=== PATIENT | male | born 1980 | race Two or more races ===

== ENCOUNTER → 2016-06-02 | Outpatient (CLI) | payer OTHER ==
[2016-06-02 14:38] LABS: HEMATOCRIT 40.1 % (37.9-51.0); HEMOGLOBIN 12.7 g/dL (13.5-17.0); MEAN CORPUSCULAR HEMOGLOBIN 23.4 pg (27.0-33.4); MEAN CORPUSCULAR HGB CONC 31.7 g/dL (32.0-36.0); MEAN CORPUSCULAR VOLUME 74 fl (80-97); RED BLOOD COUNT 5.43 10^6/uL (4.35-5.55); RED CELL DISTRIBUTION WIDTH 20.5 % (11.5-14.0); WHITE BLOOD COUNT 6.5 10^3/uL (4.0-10.5)
== END ==
LOC: OD 13:48
PROVIDERS: ATTEND Urology
DX: N40.1 Benign prostatic hyperplasia with lower urinary tract symptoms (principal); E29.1 Testicular hypofunction; N52.8 Other male erectile dysfunction; N52.9 Male erectile dysfunction, unspecified
CPT/HCPCS: 36415; 85027

== ENCOUNTER 2016-11-03 00:31 | Emergency (ER) | payer OTHER ==
[2016-11-03 01:12] VITALS: BP 129/58
[2016-11-03] MEDS ORDERED: BENZONATATE 100 MG CAPSULE PO ONE (01:47)
--- NOTE | 2016-11-03 01:49 | ER Document Report ---
ED Medical Screen (RME) - General Chief Complaint: Cough Stated Complaint: ABDOMINAL PAIN AND COUGH Time Seen by Provider: 11/03/16 01:43 Notes: 36 year old male, chief complaint of 1 week of congested cough, also patient states he has very painful left upper abdomen, unsure if this is from, for something else. Denies nausea or vomiting, denies difficulty eating. He does drink regular alcohol. He denies smoking. He has a history of asthma. Denies fever. TRAVEL OUTSIDE OF THE [place] IN LAST 30 DAYS: No - Related Data Allergies/Adverse Reactions: sertraline HCl [From Zoloft] Allergy (Verified 10/02/12 22:05) Past Medical History - Past Medical History Cardiac Medical History: Reports: Hx Hypercholesterolemia, Hx Hypertension Pulmonary Medical History: Reports: Hx Asthma Renal/ Medical History: Denies: Hx Peritoneal Dialysis Musculoskeltal Medical History: Reports Hx Arthritis Past Surgical History: Reports: Hx Nose Surgery, Hx Orthopedic Surgery - left wrist - Immunizations Hx Diphtheria, Pertussis, Tetanus Vaccination: Yes Physical Exam - Vital signs Vitals: Temp Pulse Resp BP Pulse Ox 98.6 F 88 18 129/58 H 97 11/03/16 01:08 11/03/16 01:08 11/03/16 01:08 11/03/16 01:08 11/03/16 01:08 - Respiratory Respiratory status: No respiratory distress Breath sounds: Nonproductive cough, Other - Scattered coarse breath sounds, no wheezing, rhonchi or other abnormality noted - Abdominal Tenderness: Tender - Tender specifically in mid to left upper abdomen Course - Vital Signs Vital signs: Temp Pulse Resp BP Pulse Ox 98.6 F 88 18 129/58 H 97 11/03/16 01:08 11/03/16 01:08 11/03/16 01:08 11/03/16 01:08 11/03/16 01:08
[2016-11-03 02:08] LABS: ABSOLUTE BASOPHILS # (AUTO) 0.1 10^3/uL (0.0-0.2); ABSOLUTE EOSINOPHILS # (AUTO) 0.6 10^3/uL (0.0-0.6); ABSOLUTE LYMPHOCYTES (AUTO) 2.6 10^3/uL (0.5-4.7); ABSOLUTE MONOCYTES (AUTO) 1.4 10^3/uL (0.1-1.4); ABSOLUTE NEUT (AUTO) 8.8 10^3/uL (1.7-8.2); EOSINOPHILS % (AUTO) 4.2 % (0-6); HEMATOCRIT 40.6 % (37.9-51.0); HEMOGLOBIN 12.5 g/dL (13.5-17.0); HGB HCT DIFFERENCE -3.1; LYMPHOCYTES % (AUTO) 19.5 % (13-45); MEAN CORPUSCULAR HEMOGLOBIN 21.6 pg (27.0-33.4); MEAN CORPUSCULAR HGB CONC 30.8 g/dL (32.0-36.0); MEAN CORPUSCULAR VOLUME 70 fl (80-97); MONOCYTES % (AUTO) 10.1 % (3-13); RED BLOOD COUNT 5.79 10^6/uL (4.35-5.55); RED CELL DISTRIBUTION WIDTH 20.6 % (11.5-14.0); SEGMENTED NEUTROPHILS % (AUTO) 65.2 % (42-78); WHITE BLOOD COUNT 13.5 10^3/uL (4.0-10.5)
[2016-11-03 02:19] LABS: ALANINE AMINOTRANSFERASE 58 U/L (21-72); ALBUMIN 4.1 g/dL (3.5-5.0); ALKALINE PHOSPHATASE 71 U/L (38-126); ANION GAP 9 (5-19); ASPARTATE AMINO TRANSFERASE 45 U/L (17-59); BILIRUBIN,DIRECT 0.4 mg/dL (0.0-0.4); BILIRUBIN,TOTAL 0.4 mg/dL (0.2-1.3); BLOOD UREA NITROGEN 13 mg/dL (7-20); CALCIUM 10.1 mg/dL (8.4-10.2); CARBON DIOXIDE 28 mmol/L (22-30); CHLORIDE 103 mmol/L (98-107); CREATININE RESULT 1.15 mg/dL (0.52-1.25); GLUCOSE 93 mg/dL (75-110); POTASSIUM 5.3 mmol/L (3.6-5.0); SODIUM 140.4 mmol/L (137-145); TOTAL PROTEIN 7.1 g/dL (6.3-8.2)
--- NOTE | 2016-11-03 04:23 | RADIOLOGY REPORT (SQ) ---
EXAM DESCRIPTION: CHEST PA/LAT COMPLETED DATE/TIME: 11/03/2016 3:24 am REASON FOR STUDY: painful cough COMPARISON: None. EXAM PARAMETERS: NUMBER OF VIEWS: two views TECHNIQUE: Digital Frontal and Lateral radiographic views of the chest acquired. RADIATION DOSE: NA LIMITATIONS: none FINDINGS: LUNGS AND PLEURA: No opacities, masses or pneumothorax. No pleural effusion. MEDIASTINUM AND HILAR STRUCTURES: No masses or contour abnormalities. HEART AND VASCULAR STRUCTURES: Heart normal size. No evidence for failure. BONES: No acute findings. HARDWARE: None in the chest. OTHER: No other significant finding. IMPRESSION: NO SIGNIFICANT RADIOGRAPHIC FINDING IN THE CHEST. TECHNICAL DOCUMENTATION: JOB ID: [id number] [employer]- All Rights Reserved
--- NOTE | 2016-11-03 04:48 | ER Document Report ---
ED General - General Chief Complaint: Cough Stated Complaint: ABDOMINAL PAIN AND COUGH Time Seen by Provider: 11/03/16 01:43 Notes: Patient is a 36 year old male, chief complaint of 1 week of congested cough, also patient states he has a painful left upper abdomen, unsure if this is from coughing or from something else. Pain is definitely worse with coughing. Denies nausea or vomiting, denies difficulty eating. Denies black stools. He does drink regular alcohol. He is on omeprazole. He denies smoking. He has a history of asthma. Denies fever. TRAVEL OUTSIDE OF THE [place] IN LAST 30 DAYS: No - Related Data Allergies/Adverse Reactions: sertraline HCl [From Zoloft] Allergy (Verified 10/02/12 22:05) Past Medical History - General Information source: Patient - Social History Smoking Status: Never Smoker Frequency of alcohol use: almost daily Lives with: Alone Family History: Reviewed & Not Pertinent Patient has suicidal ideation: No Patient has homicidal ideation: No - Past Medical History Cardiac Medical History: Reports: Hx Hypercholesterolemia, Hx Hypertension Pulmonary Medical History: Reports: Hx Asthma Renal/ Medical History: Denies: Hx Peritoneal Dialysis Musculoskeltal Medical History: Reports Hx Arthritis Past Surgical History: Reports: Hx Nose Surgery, Hx Orthopedic Surgery - left wrist - Immunizations Hx Diphtheria, Pertussis, Tetanus Vaccination: Yes Review of Systems - Review of Systems Constitutional: No symptoms reported EENT: No symptoms reported Cardiovascular: No symptoms reported Respiratory: See HPI Gastrointestinal: See HPI Genitourinary: No symptoms reported Male Genitourinary: No symptoms reported Musculoskeletal: No symptoms reported Skin: No symptoms reported Hematologic/Lymphatic: No symptoms reported Neurological/Psychological: No symptoms reported Physical Exam - Vital signs Vitals: Temp Pulse Resp BP Pulse Ox 98.6 F 88 18 129/58 H 97 11/03/16 01:08 11/03/16 01:08 11/03/16 01:08 11/03/16 01:08 11/03/16 01:08 Interpretation: Normal - General General appearance: Appears well, Alert, Other - patient has occasional painful coughing fits, but otherwise is well appearing - HEENT Head: Normocephalic, Atraumatic Eyes: Normal Conjunctiva: Normal Extraocular movements intact: Yes Eyelashes: Normal Pupils: PERRL Sinus: Normal Nasal: Normal Mouth/Lips: Normal Mucous membranes: Normal Pharynx: Normal Neck: Normal - Respiratory Respiratory status: No respiratory distress - Scattered coarse breath sounds without rhonchi or wheezing, still has good air movement Chest status: Tender - tender left lower and anterior rib tenderness Breath sounds: Nonproductive cough - Episodes of painful nonproductive cough, Other - a few scattered coarse breath sounds Chest palpation: Normal - Cardiovascular Rhythm: Regular. No: Tachycardia Heart sounds: Normal auscultation, S1 appreciated, S2 appreciated Murmur: No - Abdominal Inspection: Normal Distension: No distension Bowel sounds: Normal Tenderness: Tender - there is some general mild upper abdominal tenderness without guarding. No: Guarding - Back Back: Normal, Nontender. 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 Initially had a virus, has worsening cough, could be bronchitis but does not have wheezing or upper respiratory sounds. Leukocytosis on CBC. Questionable for early developing pneumonia. Patient will be treated with doxycycline. Chemistries unremarkable, lipase is normal. Suspect left upper abdominal tenderness is mainly his rib pain from the cough. No evidence of fracture. No hypoxia, tachypnea, or concerning respiratory symptoms suggesting other emergent abnormality. I discussed with patient. Patient wants an anti- inflammatory for his chest wall, however he has had gastritis and GI bleed in the past. Given moderate dose, giving Pepcid, having him continue his Protonix. Providing with antitussives medications as well. Discussed follow- up and return precautions in detail. Patient states understanding and agreement. - Vital Signs Vital signs: Temp Pulse Resp BP Pulse Ox 98.6 F 88 18 129/58 H 97 11/03/16 01:08 11/03/16 01:08 11/03/16 01:08 11/03/16 01:08 11/03/16 01:08 - Laboratory Result Diagrams: 11/03/16 01:50 11/03/16 01:50 Laboratory results interpreted by me: 11/03/16 11/03/16 01:50 01:50 WBC 13.5 H RBC 5.79 H Hgb 12.5 L MCV 70 L MCH 21.6 L MCHC 30.8 L RDW 20.6 H Absolute Neutrophils 8.8 H Potassium 5.3 H Discharge - Discharge Clinical Impression: Cough, Rib pain on left side, Left upper quadrant pain Condition: Stable Disposition: HOME, SELF-CARE Additional Instructions: You symptoms suggest a developing pneumonia from an original virus. Take doxycycline as directed. Rest. For your ribs take the naproxen and apply heat to the area, but also take pepcid along with it to avoid stomach irritation. Continue omeprazole. Take tessalon for cough during the day if needed, take the syrup at night if needed (sedating). Follow up with primary care. Return to the ED for any concerning or worsening symptoms - difficulty breathing , worsening pain, vomiting, black stools, etc. Prescriptions: Hydrocodone Bit/Homatropine [Hycodan Syrup 5-1.5 mg/5 ml Ud Cup] 5 ml PO Q4HP PRN #120 ml PRN Reason: Benzonatate [Tessalon Perle 100 mg Capsule] 100 mg PO Q8HP PRN #30 cap PRN Reason: Doxycycline Hyclate 100 mg PO BID #14 capsule Famotidine [Pepcid 20 mg Tablet] 20 mg PO BID #20 tablet Naproxen [Naprosyn 375 Mg Tablet] 375 mg PO BID #20 tablet Forms: Return to Work
== END 2016-11-03 04:50 | disposition home or self-care (01) ==
LOC: ER 00:31
DX: R05 Cough (principal); K29.70 Gastritis, unspecified, without bleeding; R10.12 Left upper quadrant pain; R07.81 Pleurodynia; D72.829 Elevated white blood cell count, unspecified; J45.909 Unspecified asthma, uncomplicated; I10 Essential (primary) hypertension; Z79.899 Other long term (current) drug therapy; Z88.8 Allergy status to other drugs, medicaments and biological substances
CPT/HCPCS: 36415; 71020; 80053; 83690; 85025; 99283

== ENCOUNTER → 2016-12-03 | Outpatient (CLI) | payer OTHER, BC ==
[2016-12-03 16:10] LABS: ABSOLUTE LYMPHOCYTES (AUTO) 1.1 10^3/uL (0.5-4.7); ABSOLUTE MONOCYTES (AUTO) 1.3 10^3/uL (0.1-1.4); ABSOLUTE NEUT (AUTO) 14.2 10^3/uL (1.7-8.2); BASOPHILS % (AUTO) 0.2 % (0-2); HEMATOCRIT 38.1 % (37.9-51.0); HEMOGLOBIN 11.7 g/dL (13.5-17.0); LYMPHOCYTES % (AUTO) 6.5 % (13-45); MEAN CORPUSCULAR HEMOGLOBIN 20.9 pg (27.0-33.4); MEAN CORPUSCULAR HGB CONC 30.6 g/dL (32.0-36.0); MEAN CORPUSCULAR VOLUME 68 fl (80-97); RED BLOOD COUNT 5.59 10^6/uL (4.35-5.55); RED CELL DISTRIBUTION WIDTH 21.7 % (11.5-14.0); SEGMENTED NEUTROPHILS % (AUTO) 85.3 % (42-78); WHITE BLOOD COUNT 16.6 10^3/uL (4.0-10.5)
== END ==
LOC: OD 15:36
PROVIDERS: ATTEND Urology
DX: E29.1 Testicular hypofunction (principal); N52.8 Other male erectile dysfunction
CPT/HCPCS: 36415; 84402; 84403; 85025

== ENCOUNTER → 2017-02-13 | Outpatient (CLI) | payer SELFPAY ==
[2017-02-13 13:12] LABS: ABSOLUTE BASOPHILS # (AUTO) 0.1 10^3/uL (0.0-0.2); ABSOLUTE EOSINOPHILS # (AUTO) 0.2 10^3/uL (0.0-0.6); ABSOLUTE LYMPHOCYTES (AUTO) 2.3 10^3/uL (0.5-4.7); ABSOLUTE MONOCYTES (AUTO) 1.2 10^3/uL (0.1-1.4); ABSOLUTE NEUT (AUTO) 5.4 10^3/uL (1.7-8.2); BASOPHILS % (AUTO) 0.9 % (0-2); EOSINOPHILS % (AUTO) 1.8 % (0-6); HEMATOCRIT 42.3 % (37.9-51.0); HEMOGLOBIN 13.2 g/dL (13.5-17.0); HGB HCT DIFFERENCE -2.7; LYMPHOCYTES % (AUTO) 25.2 % (13-45); MEAN CORPUSCULAR HEMOGLOBIN 21.4 pg (27.0-33.4); MEAN CORPUSCULAR HGB CONC 31.3 g/dL (32.0-36.0); MEAN CORPUSCULAR VOLUME 68 fl (80-97); MONOCYTES % (AUTO) 12.6 % (3-13); RED BLOOD COUNT 6.19 10^6/uL (4.35-5.55); RED CELL DISTRIBUTION WIDTH 21.1 % (11.5-14.0); SEGMENTED NEUTROPHILS % (AUTO) 59.5 % (42-78); WHITE BLOOD COUNT 9.2 10^3/uL (4.0-10.5)
== END ==
LOC: OD 12:23
PROVIDERS: ATTEND Urology
DX: E29.1 Testicular hypofunction (principal); N52.8 Other male erectile dysfunction; I10 Essential (primary) hypertension
CPT/HCPCS: 36415; 84403; 85025

== ENCOUNTER → 2017-03-20 | Outpatient (CLI) | payer SELFPAY ==
[2017-03-20 13:14] LABS: HEMATOCRIT 42.6 % (37.9-51.0); HEMOGLOBIN 12.9 g/dL (13.5-17.0); MEAN CORPUSCULAR HEMOGLOBIN 20.5 pg (27.0-33.4); MEAN CORPUSCULAR HGB CONC 30.4 g/dL (32.0-36.0); MEAN CORPUSCULAR VOLUME 67 fl (80-97); PLATELET COUNT 326 10^3/uL (150-450); RED BLOOD COUNT 6.32 10^6/uL (4.35-5.55); RED CELL DISTRIBUTION WIDTH 20.7 % (11.5-14.0); WHITE BLOOD COUNT 10.4 10^3/uL (4.0-10.5)
== END ==
LOC: OD 12:28
PROVIDERS: ATTEND Urology
DX: E29.1 Testicular hypofunction (principal); N52.8 Other male erectile dysfunction; D75.1 Secondary polycythemia
CPT/HCPCS: 36415; 85027

== ENCOUNTER 2017-04-18 06:47 | Emergency (ER) | payer OTHER ==
[2017-04-18] MEDS ORDERED: KETOROLAC TROMETHAMINE 60 MG/2 ML SDV IM ONE (07:36)
--- NOTE | 2017-04-18 07:48 | ER Document Report ---
HPI - HPI Patient complains to provider of: back pain Onset: This morning Onset/Duration: Sudden Quality of pain: Achy Severity: Severe Pain Level: 5 Context: Patient presents emergency department with low back pain. Patient reports he recently started using a BiPAP machine and raised his bed using towels. He reports that he woke up in the middle night with back pain. Denies trauma. Denies urinary or bowel incontinence or retention. Denies numbness or tingling. Although he does report that it feels a little bit numb at the site. Patient reports it feels better when he sits and it is hard to stand up because of the pain. He did take Motrin this morning. Denies recent weight loss denies IV drug use denies fever vomiting or diarrhea. Associated Symptoms: None Exacerbated by: Standing - standing straight Relieved by: Denies Similar symptoms previously: Yes Recently seen / treated by doctor: No - CARDIOVASCULAR Cardiovascular: DENIES: Chest pain - RESPIRATORY Respiratory: DENIES: Trouble Breathing - GASTROINTESTINAL Gastrointestinal: DENIES: Abdominal Pain Past Medical History - General Information source: Patient - Social History Smoking Status: Never Smoker Chew tobacco use (# tins/day): No Frequency of alcohol use: Social Drug Abuse: None Occupation: [employer] Lives with: Family Family History: Reviewed & Not Pertinent Patient has suicidal ideation: No Patient has homicidal ideation: No - Past Medical History Cardiac Medical History: Reports: Hx Hypercholesterolemia, Hx Hypertension Pulmonary Medical History: Reports: Hx Asthma Renal/ Medical History: Denies: Hx Peritoneal Dialysis Musculoskeltal Medical History: Reports Hx Arthritis Past Surgical History: Reports: Hx Nose Surgery, Hx Orthopedic Surgery - left wrist - Immunizations Hx Diphtheria, Pertussis, Tetanus Vaccination: Yes Vertical Provider Document - CONSTITUTIONAL Agree With Documented VS: Yes Exam Limitations: No Limitations General Appearance: WD/WN, No Apparent Distress - nontoxic looking - INFECTION CONTROL TRAVEL OUTSIDE OF THE [place] IN LAST 30 DAYS: No - HEENT HEENT: Atraumatic, Normocephalic - NECK Neck: Normal Inspection, Supple. negative: Lymphadenopathy-Left, Lymphadenopathy-Right - RESPIRATORY Respiratory: Breath Sounds Normal, No Respiratory Distress O2 Sat by Pulse Oximetry: 97 - CARDIOVASCULAR Cardiovascular: Regular Rate, Regular Rhythm - GI/ABDOMEN Gastrointestinal: Abdomen Soft, Abdomen Non-Tender - BACK Back: Normal Inspection - No obvious deformity no pain with palpation to movement and sensation normal reflexes no weakness, no erythema warmth or swelling - MUSCULOSKELETAL/EXTREMETIES Musculoskeletal/Extremeties: ILYA CASTILLO - NEURO Level of Consciousness: Awake, Alert, Appropriate Motor/Sensory: No Motor Deficit - DERM Integumentary: Warm, Dry Adult Front & Back Diagram: 1 - reports pain when standing straight Course - Re-evaluation Re-evalutation: 04/18/17 09:24 Patient has full range of motions no signs of cauda equina. Stands/sits ambulates without problem. No trauma or signs of sepsis. Denies paresthesia. He was instructed to take Motrin ice packs to the back. He was also [facility] or [facility] for worsening symptoms. He verbalized understanding. - Vital Signs Vital signs: Temp Pulse Resp BP Pulse Ox 98.3 F 103 H 16 142/89 H 97 04/18/17 06:52 04/18/17 06:52 04/18/17 06:52 04/18/17 06:52 04/18/17 06:52 Discharge - Discharge Clinical Impression: Back pain Qualifiers: Back pain location: low back pain Chronicity: unspecified Back pain laterality : midline Sciatica presence: without sciatica Qualified Code(s): M54.5 - Low back pain Condition: Stable Disposition: HOME, SELF-CARE Instructions: Use of Mtoa-Xsm-Npbriar Ibuprofen ([facility]), Ice Packs ([facility]), Low Back Pain ([facility]), Muscle Relaxers ([facility]), Toradol Injection ([facility]), Warm Packs ([facility] ) Additional Instructions: *You have been evaluated for back pain *Take medication as prescribed *Rest/Ice- heat as directed *[facility] *Return to ED for worsening condition, changes, needs, concerns Prescriptions: Cyclobenzaprine HCl [Flexeril 10 Mg Tablet] 10 mg PO TID #30 tablet Forms: Elevated Blood Pressure
[2017-04-18 08:11] VITALS: BP 139/88
== END 2017-04-18 08:07 | disposition home or self-care (01) ==
LOC: ER 06:47
DX: M54.5 Low back pain (principal); M54.9 Dorsalgia, unspecified; R20.0 Anesthesia of skin
CPT/HCPCS: 99283; 96372; J1885

== ENCOUNTER 2018-02-19 09:15 | Emergency (ER) | payer OTHER ==
[2018-02-19] MEDS ORDERED: IBUPROFEN 800 MG TABLET PO ONE (10:09)
--- NOTE | 2018-02-19 10:14 | ER Document Report ---
HPI - HPI Patient complains to provider of: Left knee pain Time Seen by Provider: 02/19/18 09:54 Onset: This morning Onset/Duration: Sudden Quality of pain: Achy Pain Level: 5 Context: Patient states that he got out of bed this morning and whenever he went to stand up his left knee gave out on him causing him to fall back onto his bed. Patient complains of left elbow pain with some numbness on the lateral aspect of the elbow and left knee and left lower leg pain. Patient states he has had problems with knee pain in the past although has never had any evaluation of the intermittent knee pain. Patient denies any recent trauma. Associated Symptoms: Other - Left knee pain, left arm pain. denies: Nausea, Vomiting Exacerbated by: Movement Relieved by: Denies Similar symptoms previously: Yes - History of knee pain in the past Recently seen / treated by doctor: No - ROS ROS below otherwise negative: Yes Systems Reviewed and Negative: Yes All other systems reviewed and negative - CONSTITUTIONAL Constitutional: DENIES: Fever, Chills - CARDIOVASCULAR Cardiovascular: DENIES: Chest pain - RESPIRATORY Respiratory: DENIES: Trouble Breathing, Coughing - GASTROINTESTINAL Gastrointestinal: DENIES: Abdominal Pain, Nausea - REPRODUCTIVE Reproductive: DENIES: : - MUSCULOSKELETAL Musculoskeletal: REPORTS: Extremity pain - LUE, LLE. DENIES: Back Pain, Neck Pain - DERM Skin Color: Normal Skin Problems: None Past Medical History - General Information source: Patient - Social History Smoking Status: Current Some Day Smoker Smoking Education Provided: Yes Frequency of alcohol use: Social Drug Abuse: None Occupation: None Family History: Reviewed & Not Pertinent Patient has suicidal ideation: No Patient has homicidal ideation: No - Past Medical History Cardiac Medical History: Reports: Hx Hypercholesterolemia, Hx Hypertension Pulmonary Medical History: Reports: Hx Asthma Renal/ Medical History: Denies: Hx Peritoneal Dialysis Musculoskeletal Medical History: Reports Hx Arthritis Psychiatric Medical History: Reports: Hx Anxiety, Hx Depression Past Surgical History: Reports: Hx Nose Surgery - Deviated Septum, Hx Orthopedic Surgery - left wristComment Only: Hx Vascular Surgery - PRK Bilateral eyes, 2 Gum Graphs - Immunizations Hx Diphtheria, Pertussis, Tetanus Vaccination: Yes Vertical Provider Document - CONSTITUTIONAL Agree With Documented VS: Yes Exam Limitations: No Limitations General Appearance: WD/WN, No Apparent Distress - INFECTION CONTROL TRAVEL OUTSIDE OF THE [place] IN LAST 30 DAYS: No - HEENT HEENT: Atraumatic, Normocephalic - NECK Neck: Normal Inspection, Supple - RESPIRATORY Respiratory: Breath Sounds Normal, No Respiratory Distress - CARDIOVASCULAR Cardiovascular: Regular Rate, Regular Rhythm Pulses: Normal: Radial, Dorsalis pedis - BACK Back: Normal Inspection Notes: No midline tenderness step-off or deformity - MUSCULOSKELETAL/EXTREMETIES Musculoskeletal/Extremeties: Tender - Left knee joint tenderness to medial compartment, left lower leg tenderness to middle third of the anterior tibia, normal skin color and temperature, no deformity or dislocation. No laxity with varus or valgus maneuvers. Patellar tendon intact, No Edema. negative: Eccymosis Notes: Patient with left elbow tenderness over medial and lateral epicondyle, no deformity or dislocation. Tenderness with range of motion and palpation. - NEURO Level of Consciousness: Awake, Alert Motor/Sensory: No Motor Deficit Notes: Patient reports decreased light touch sensation to the lateral aspect of left elbow and to the anterior aspect of left lower extremity - DERM Integumentary: Warm, Dry, Rash - Crusted circular skin lesion to the anterior aspect of left thigh, rash nonpruritic, nonpainful. negative: Abscess Course - Re-evaluation Re-evalutation: 02/19/18 11:29 discussed with patient concerns about possible internal knee injury that requires orthopedic follow-up. Will immobilize the joint today and have patient touch base with his primary doctor for referral to orthopedics. - Vital Signs Vital signs: Temp Pulse Resp BP Pulse Ox 97.9 F 95 16 127/94 H 100 02/19/18 09:21 02/19/18 09:21 02/19/18 09:21 02/19/18 09:21 02/19/18 09:21 - Diagnostic Test Radiology reviewed: Image reviewed, Reports reviewed Procedures - Immobilization Left Knee Pre-Proc Neuro Vasc Exam: Normal Immobilizer type: Noel wrap, Knee immobilizer Performed by: PCT Post-Proc Neuro Vasc Exam: Normal Alignment checked and good: Yes Discharge - Discharge Clinical Impression: Effusion, left knee Sprain of left elbow Qualifiers: Encounter type: initial encounter Qualified Code(s): S53.402A - Unspecified sprain of left elbow, initial encounter Left knee pain Qualifiers: Chronicity: unspecified Qualified Code(s): M25.562 - Pain in left knee Condition: Stable Disposition: HOME, SELF-CARE Instructions: Noel Wrap ([facility]), Use of Crutches ([facility]), Knee Effusion ([facility]), Knee Immobilizing Splint ([facility]), Oral Narcotic Medication ([facility]) Additional Instructions: Return immediately for any new or worsening symptoms Followup with your primary care provider, call tomorrow to make a followup appointment Weightbearing as tolerated Follow-up with orthopedics for further evaluation. You may need a referral from your primary doctor Prescriptions: Hydrocodone/Acetaminophen [[place] 5-325 mg Tablet] 1 tab PO Q6 PRN #12 tablet PRN Reason: Forms: Smoking Cessation Education Referrals: GRICELDA DEAL MD [Primary Care Provider] - Follow up as needed [facility] [Provider Group] - Follow up tomorrow
--- NOTE | 2018-02-19 10:57 | RADIOLOGY REPORT (SQ) ---
EXAM DESCRIPTION: ELBOW LEFT OVER 2 VIEWS COMPLETED DATE/TIME: 02/19/2018 10:48 am REASON FOR STUDY: fall, left elbow pain COMPARISON: None. NUMBER OF VIEWS: Four views. TECHNIQUE: AP, lateral, and both oblique radiographic images acquired of the left elbow. LIMITATIONS: None. FINDINGS: MINERALIZATION: Normal. BONES: No acute fracture or dislocation. No worrisome bone lesions. JOINT: No effusion. SOFT TISSUES: No soft tissue swelling. No foreign body. OTHER: No other significant finding. IMPRESSION: NEGATIVE STUDY OF THE LEFT ELBOW. NO RADIOGRAPHIC EVIDENCE OF ACUTE INJURY. TECHNICAL DOCUMENTATION: JOB ID: [id number] [employer]- All Rights Reserved Reading location - IP/workstation name: [email or web address]
--- NOTE | 2018-02-19 10:58 | RADIOLOGY REPORT (SQ) ---
EXAM DESCRIPTION: TIBIA FIBULA LEFT COMPLETED DATE/TIME: 02/19/2018 10:48 am REASON FOR STUDY: fall, LLE pain COMPARISON: None. NUMBER OF VIEWS: Two views. TECHNIQUE: Two radiographic images acquired of the left tibia and fibula to include the knee and ank le in at least one projection. LIMITATIONS: None. FINDINGS: MINERALIZATION: Normal. BONES: No acute fracture or dislocation. No worrisome bone lesions. SOFT TISSUES: No obvious swelling or foreign body. OTHER: No other significant finding. IMPRESSION: NEGATIVE STUDY OF THE LEFT TIBIA AND FIBULA. NO RADIOGRAPHIC EVIDENCE OF ACUTE INJURY. TECHNICAL DOCUMENTATION: JOB ID: [id number] [employer]- All Rights Reserved Reading location - IP/workstation name: [email or web address]
--- NOTE | 2018-02-19 11:00 | RADIOLOGY REPORT (SQ) ---
EXAM DESCRIPTION: KNEE LEFT 4 VIEW COMPLETED DATE/TIME: 02/19/2018 10:48 am REASON FOR STUDY: knee gave out, fall COMPARISON: None. NUMBER OF VIEWS: Four views. TECHNIQUE: AP, lateral, and both oblique radiographic images acquired of the left knee. LIMITATIONS: None. FINDINGS: MINERALIZATION: Normal. BONES: No acute fracture or dislocation. No worrisome bone lesions. JOINT: With possible joint effusion SOFT TISSUES: No soft tissue swelling. No radio-opaque foreign body. OTHER: No other significant finding. IMPRESSION: No acute posttraumatic bony change. Possible joint effusion. TECHNICAL DOCUMENTATION: JOB ID: [id number] [employer]- All Rights Reserved Reading location - IP/workstation name: [email or web address]
[2018-02-19 11:50] VITALS: BP 143/88
== END 2018-02-19 11:47 | disposition home or self-care (01) ==
LOC: ER 09:15
DX: S53.402A Unspecified sprain of left elbow, initial encounter (principal); M25.562 Pain in left knee; W18.30XA Fall on same level, unspecified, initial encounter; Y92.003 Bedroom of unspecified non-institutional (private) residence as the place of occurrence of the external cause; F17.200 Nicotine dependence, unspecified, uncomplicated; E78.00 Pure hypercholesterolemia, unspecified; I10 Essential (primary) hypertension
CPT/HCPCS: 99283; 73080; 73564; 73590; L1830

== ENCOUNTER → 2018-06-24 | Outpatient (CLI) | payer OTHER ==
--- NOTE | 2018-06-24 12:25 | RADIOLOGY REPORT (SQ) ---
EXAM DESCRIPTION: CHEST PA/LATERAL COMPLETED DATE/TIME: 06/24/2018 12:03 pm REASON FOR STUDY: PRE-OP COMPARISON: 11/03/2016 EXAM PARAMETERS: NUMBER OF VIEWS: two views TECHNIQUE: Digital Frontal and Lateral radiographic views of the chest acquired. RADIATION DOSE: NA LIMITATIONS: none FINDINGS: LUNGS AND PLEURA: No opacities, masses or pneumothorax. No pleural effusion. MEDIASTINUM AND HILAR STRUCTURES: No masses or contour abnormalities. HEART AND VASCULAR STRUCTURES: Heart normal size. No evidence for failure. BONES: No acute findings. HARDWARE: None in the chest. OTHER: No other significant finding. IMPRESSION: NO SIGNIFICANT RADIOGRAPHIC FINDING IN THE CHEST. TECHNICAL DOCUMENTATION: JOB ID: [id number] [employer]- All Rights Reserved Reading location - IP/workstation name: [email or web address]
[2018-06-24 12:53] LABS: ABSOLUTE BASOPHILS # (AUTO) 0.1 10^3/uL (0.0-0.2); ABSOLUTE EOSINOPHILS # (AUTO) 0.1 10^3/uL (0.0-0.6); ABSOLUTE LYMPHOCYTES (AUTO) 2.1 10^3/uL (0.5-4.7); ABSOLUTE MONOCYTES (AUTO) 0.6 10^3/uL (0.1-1.4); ABSOLUTE NEUT (AUTO) 4.9 10^3/uL (1.7-8.2); BASOPHILS % (AUTO) 0.9 % (0-2); EOSINOPHILS % (AUTO) 1.6 % (0-6); HEMATOCRIT 45.5 % (37.9-51.0); HEMOGLOBIN 14.3 g/dL (13.5-17.0); LYMPHOCYTES % (AUTO) 26.9 % (13-45); MEAN CORPUSCULAR HEMOGLOBIN 21.7 pg (27.0-33.4); MEAN CORPUSCULAR HGB CONC 31.4 g/dL (32.0-36.0); MEAN CORPUSCULAR VOLUME 69 fl (80-97); MONOCYTES % (AUTO) 8.1 % (3-13); PLATELET COUNT 288 10^3/uL (150-450); RED BLOOD COUNT 6.58 10^6/uL (4.35-5.55); RED CELL DISTRIBUTION WIDTH 19.5 % (11.5-14.0); SEGMENTED NEUTROPHILS % (AUTO) 62.5 % (42-78); TOTAL CELLS COUNTED % (AUTO) 100 %; WHITE BLOOD COUNT 7.8 10^3/uL (4.0-10.5)
[2018-06-24 13:16] LABS: ANION GAP 9 (5-19); BLOOD UREA NITROGEN 18 mg/dL (7-20); CALCIUM 10.2 mg/dL (8.4-10.2); CARBON DIOXIDE 28 mmol/L (22-30); CHLORIDE 103 mmol/L (98-107); GLUCOSE 71 mg/dL (75-110); POTASSIUM 4.7 mmol/L (3.6-5.0); SODIUM 140.1 mmol/L (137-145)
--- NOTE | 2018-06-24 15:34 | EKG REPORT ---
SEVERITY:- NORMAL ECG - SINUS RHYTHM : Confirmed by: Rozina Hyman MD 24-Jun-2018 15:33:07
== END ==
LOC: OD 11:24
PROVIDERS: ATTEND Orthopaedic Surgery
DX: Z01.810 Encounter for preprocedural cardiovascular examination (principal); Z01.811 Encounter for preprocedural respiratory examination; M23.332 Other meniscus derangements, other medial meniscus, left knee; J45.909 Unspecified asthma, uncomplicated; I10 Essential (primary) hypertension
CPT/HCPCS: 36415; 71046; 80048; 85025; 93005; 93010

== ENCOUNTER 2018-10-04 12:02 | Emergency (ER) | payer OTHER ==
[2018-10-04] MEDS ORDERED: KETOROLAC TROMETHAMINE 0.45% 4 DROP/0.4 ML DROPERETTE OD ONE (13:25)
[2018-10-04] MEDS ORDERED: POLYMYXIN B SULFATE/TMP OPH SOLN (10 ML/ER DISP) OD PRN (13:26)
--- NOTE | 2018-10-04 13:39 | ER Document Report ---
HPI - HPI Patient complains to provider of: R eye pain Time Seen by Provider: 10/04/18 13:12 Pain Level: 1 Context: 37-year-old male with history of bilateral eye pinguecula presents to the emergency department with right eye redness and pain since yesterday. He said he was cutting the grass yesterday and when he was done he noticed that his eye was itchy and irritated. He proceeded to rinse it out and then showered and it got progressively worse throughout the night and woke him up to 5:00 in the morning. He feels the sensation that there is something in his eye. Complains of photophobia and excessive tearing. Complains of blurred vision in his right eye. Denies any vision loss or diplopia. Denies headache. Denies contact lens use. No other complaints. - EENT EENT: REPORTS: Eye problems - REPRODUCTIVE Reproductive: DENIES: : Past Medical History - Social History Smoking Status: Never Smoker Frequency of alcohol use: Occasional Drug Abuse: None Family History: Reviewed & Not Pertinent Patient has suicidal ideation: No Patient has homicidal ideation: No - Past Medical History Cardiac Medical History: Reports: Hx Hypercholesterolemia, Hx Hypertension Pulmonary Medical History: Reports: Hx Asthma Renal/ Medical History: Denies: Hx Peritoneal Dialysis Musculoskeletal Medical History: Reports Hx Arthritis Psychiatric Medical History: Reports: Hx Anxiety, Hx Depression Past Surgical History: Reports: Hx Nose Surgery - Deviated Septum, Hx Orthopedic Surgery - left wristComment Only: Hx Vascular Surgery - PRK Bilateral eyes, 2 Gum Graphs - Immunizations Hx Diphtheria, Pertussis, Tetanus Vaccination: Yes Vertical Provider Document - CONSTITUTIONAL Notes: PHYSICAL EXAMINATION: Reviewed vital signs and charting by RN GENERAL: Alert, interacts well. No acute distress. HEAD: Normocephalic, atraumatic. EYES: Pupils equal and round. Extraocular movements intact. Bilateral pinguecula noted not encroaching the iris of the eye on the right side, scleral injection of the right eye, tearing. Floor seen stain performed and no uptake seen to suggest corneal abrasion or corneal ulcer. Eyelid inverted and no evidence of a foreign body. Patient able to read small print at approximately 12 to 14 inches without problem. ENT: Oral mucosa moist, tongue midline. EXTREMITIES: Moves all 4 extremities spontaneously. No edema, No cyanosis. PSYCH: Normal affect, normal mood. SKIN: Warm, dry, normal turgor. No rashes or lesions noted. - INFECTION CONTROL TRAVEL OUTSIDE OF THE [place] IN LAST 30 DAYS: No Course - Re-evaluation Re-evalutation: 10/04/18 13:29 Overall well-appearing fluoroscein stain did not reveal corneal abrasion or corneal ulcer. No eye entrapment and extraocular movements intact. Unclear etiology at this point as when eyelid was inverted there is no obvious foreign body or scratch or abrasion. Plan is to provide Keralac drops of the right eye and place him on a short course of Polytrim. We do not have ophthalmology paper conservator so I will have him follow-up with his primary. - Vital Signs Vital signs: Temp Pulse Resp BP Pulse Ox 98.4 F 84 16 121/65 98 10/04/18 12:10 10/04/18 12:10 10/04/18 12:10 10/04/18 12:10 10/04/18 12:10 Discharge - Discharge Clinical Impression: Redness of eye, right, Pain, eye, right, Pinguecula of both eyes Condition: Good Disposition: HOME, SELF-CARE Instructions: Antibiotic Therapy ([facility]), Conjunctivitis ([facility]), Eyedrop Use ([facility]) Additional Instructions: You were seen in the emergency department this afternoon for red and painful eye. When we stained her eye there is no evidence of a corneal abrasion or corneal ulcer and wound inverted your eyelid there is no obvious eyelash, scratch, or foreign body present. It is unclear what the cause is but it is overall reassuring that there is no emergent problem at this time. If your eye gets swollen after using antibiotic drops and steroid drops, you are unable to move your eye i.e. entrapment, you have vision loss, or you have any other concerning symptoms please immediately return to the emergency department. [facility]errals: [facility] [[facility]] - Follow up as needed
[2018-10-04 13:40] VITALS: BP 120/59
[2018-10-04] MEDS ORDERED: KETOROLAC TROMETHAMINE 0.45% 4 DROP/0.4 ML DROPERETTE OS ONE (13:40)
== END 2018-10-04 13:46 | disposition home or self-care (01) ==
LOC: ER 12:02
DX: H11.153 Pinguecula, bilateral (principal); H57.11 Ocular pain, right eye; H53.141 Visual discomfort, right eye; H53.8 Other visual disturbances; I10 Essential (primary) hypertension; J45.909 Unspecified asthma, uncomplicated
CPT/HCPCS: 99283; J3490

== ENCOUNTER 2019-07-10 20:55 | Emergency (ER) | payer OTHER ==
[2019-07-10] MEDS ORDERED: ONDANSETRON HCL 8 MG TABLET PO ONE (21:39)
[2019-07-10 22:01] LABS: HEMATOCRIT 42.8 % (37.9-51.0); HEMOGLOBIN 13.6 g/dL (13.5-17.0); MEAN CORPUSCULAR HEMOGLOBIN 20.9 pg (27.0-33.4); MEAN CORPUSCULAR HGB CONC 31.8 g/dL (32.0-36.0); MEAN CORPUSCULAR VOLUME 66 fl (80-97); PLATELET COUNT 366 10^3/uL (150-450); RED BLOOD COUNT 6.51 10^6/uL (4.35-5.55); RED CELL DISTRIBUTION WIDTH 21.1 % (11.5-14.0); WHITE BLOOD COUNT 12.7 10^3/uL (4.0-10.5)
[2019-07-10 22:17] LABS: ALBUMIN 5.2 g/dL (3.5-5.0); ALKALINE PHOSPHATASE 72 U/L (38-126); ANION GAP 12 (5-19); ASPARTATE AMINO TRANSFERASE 30 U/L (17-59); BILIRUBIN,TOTAL 0.9 mg/dL (0.2-1.3); BLOOD UREA NITROGEN 16 mg/dL (7-20); CALCIUM 10.2 mg/dL (8.4-10.2); CARBON DIOXIDE 26 mmol/L (22-30); CHLORIDE 99 mmol/L (98-107); GLUCOSE 113 mg/dL (75-110); POTASSIUM 4.1 mmol/L (3.6-5.0); TOTAL PROTEIN 8.9 g/dL (6.3-8.2)
[2019-07-10 22:19] LABS: ABSOLUTE LYMPHOCYTES# (MANUAL) 0.9 10^3/uL (0.5-4.7); BASOPHILS % (MANUAL) 1 % (0-2); EOSINOPHILS % (MANUAL) 0 % (0-6); LYMPHOCYTES % (MANUAL) 6 % (13-45); MONOCYTES % (MANUAL) 8 % (3-13); NUCLEATED RED BLOOD CELLS 1 /100 WBC (0); SEGMENTED NEUTROPHILS % (MAN) 84 % (42-78); TOTAL CELLS COUNTED 100; TOXIC GRANULATION SLIGHT; TOXIC VACUOLATION PRESENT
[2019-07-10 22:20] LABS: ANISOCYTOSIS 3+; POIKILOCYTOSIS 3+
[2019-07-10 22:21] LABS: OVALOCYTES 2+; PLATELET COMMENT ADEQUATE; SCHISTOCYTES SLIGHT; TEAR DROP CELLS 2+
[2019-07-11] MEDS ORDERED: METOCLOPRAMIDE HCL INJ/PF 10 MG/2 ML SDV IV ONE (00:35)
[2019-07-11] MEDS ORDERED: NORMAL SALINE 1000 ML 1,000 ML IV ONE (00:35)
--- NOTE | 2019-07-11 00:35 | ER Document Report ---
ED General - General Chief Complaint: Nausea/Vomiting/Diarrhea Stated Complaint: ABDOMINAL PAIN,VOMITING Time Seen by Provider: 07/11/19 00:29 Primary Care Provider: RAGHU,ANN [Primary Care Provider] - Follow up as needed Mode of Arrival: Ambulatory Information source: Patient TRAVEL OUTSIDE OF THE [place] IN LAST 30 DAYS: No - HPI Onset: Yesterday Onset/Duration: Sudden Quality of pain: Achy, Cramping Severity: Severe Pain Level: 2 Associated symptoms: Diarrhea, Nausea, Vomiting, Other - Abdominal Pain Exacerbated by: Food Relieved by: Denies Similar symptoms previously: Yes - with prior food poisoning Recently seen / treated by doctor: No Notes: 38 year old male with a history of HTN and a prior ulcer here in the ER for nausea, vomiting, diarrhea, upper abdominal pain, chill and sweats which started after eating take out tacos yesterday around noon. The patient denies fevers, blood in his stool, blood in his vomit. The patient says his diarrhea is nearly clear at this point and it is very frequent. - Related Data Allergies/Adverse Reactions: No Known Allergies Allergy (Verified 07/10/19 21:32) Past Medical History - General Information source: Patient - Social History Smoking Status: Never Smoker Frequency of alcohol use: Rare Drug Abuse: None Family History: Reviewed & Not Pertinent Patient has homicidal ideation: No - Past Medical History Cardiac Medical History: Reports: Hx Hypercholesterolemia, Hx Hypertension Pulmonary Medical History: Reports: Hx Asthma Renal/ Medical History: Denies: Hx Peritoneal Dialysis Musculoskeletal Medical History: Reports Hx Arthritis Psychiatric Medical History: Reports: Hx Anxiety, Hx Depression Past Surgical History: Reports: Hx Nose Surgery - Deviated Septum, Hx Orthopedic Surgery - left wristComment Only: Hx Vascular Surgery - PRK Bilateral eyes, 2 Gum Graphs - Immunizations Hx Diphtheria, Pertussis, Tetanus Vaccination: Yes Review of Systems - Review of Systems Constitutional: No symptoms reported EENT: No symptoms reported Cardiovascular: No symptoms reported Respiratory: No symptoms reported Gastrointestinal: Abdominal pain, Diarrhea, Nausea, Vomiting Genitourinary: No symptoms reported Male Genitourinary: No symptoms reported Musculoskeletal: No symptoms reported Skin: No symptoms reported Hematologic/Lymphatic: No symptoms reported Neurological/Psychological: No symptoms reported -: Yes All other systems reviewed and negative Physical Exam - Vital signs Vitals: Temp Pulse Resp BP Pulse Ox 98.7 F 100 14 150/88 H 98 07/10/19 21:00 07/10/19 21:00 07/10/19 21:00 07/10/19 21:00 07/10/19 21:00 - Notes Notes: GENERAL: Well-appearing, well-nourished and in no acute distress. HEAD: Atraumatic, normocephalic. EYES: Pupils equal round and reactive to light, extraocular movements intact, sclera anicteric, conjunctiva are normal. ENT: External ears normal, nares patent, oropharynx clear without exudates. Moist mucous membranes. NECK: Normal range of motion, supple without lymphadenopathy or JVD. LUNGS: Breath sounds clear to auscultation bilaterally and equal. No wheezes rales or rhonchi. HEART: Regular rate and rhythm without murmurs, rubs or gallops. ABDOMEN: Soft, mild upper abdominal tenderness, normoactive bowel sounds. No guarding, no rebound. No masses appreciated. EXTREMITIES: Normal range of motion, no pitting or edema. No clubbing or cyanosis. NEUROLOGICAL: Cranial nerves II through XII grossly intact. Normal speech, normal gait. PSYCH: Normal mood, normal affect. SKIN: Warm, Dry, normal turgor, no rashes or lesions noted. Course - Re-evaluation Re-evalutation: 07/11/19 01:01 The patient is here for nausea, vomiting, diarrhea, and upper abdominal pains which started after eating take out tacos yesterday for lunch. The patient denies fevers, chills, sweats, blood in his vomit, blood in his diarrhea. The patient says he has had upper abdominal pain in the past that felt something like this but he says he thinks he had an ulcer then. Patient was given Zofran prior to me evaluating him. He got some mild relief from the Zofran but still had nausea when I examined him. I therefore ordered fluids and IV Reglan. Patient's labs unremarkable (he may have some mild WOJCIECH). Patient likely has food poisoning. Plan will be to DC patient with a short course of Reglan and have him orally hydrate. 07/11/19 02:01 The patient feels better after treatment with fluids and Reglan. Will DC and have his follow up with a PCP. - Vital Signs Vital signs: Temp Pulse Resp BP Pulse Ox 98.7 F 100 14 150/88 H 98 07/10/19 21:37 07/10/19 21:00 07/10/19 21:00 07/10/19 21:00 07/10/19 21:00 - Laboratory Result Diagrams: 07/10/19 20:50 07/10/19 20:50 Laboratory results interpreted by me: 07/10/19 07/10/19 20:50 20:50 WBC 12.7 H RBC 6.51 H MCV 66 L MCH 20.9 L MCHC 31.8 L RDW 21.1 H Seg Neuts % (Manual) 84 H Lymphocytes % (Manual) 6 L Abs Neuts (Manual) 10.7 H Creatinine 1.27 H Glucose 113 H Total Protein 8.9 H Albumin 5.2 H - Diagnostic Test Radiology reviewed: Image reviewed, Reports reviewed Discharge - Discharge Clinical Impression: Food poisoning Nausea & vomiting Qualifiers: Vomiting type: unspecified Vomiting Intractability: non-intractable Qualified Code(s): R11.2 - Nausea with vomiting, unspecified Condition: Stable Disposition: HOME, SELF-CARE Instructions: Abdominal Pain ([facility]), Food Poisoning ([facility]) Additional Instructions: Use Reglan as needed for nausea/vomiting. Drink plenty of fluids in the days to come. Follow up with your primary care doctor or one of the primary care doctors listed in your discharge paperwork if symptoms persist. Bring a stool sample to a doctors office for further testing if your diarrhea does not clear up. Prescriptions: Metoclopramide HCl [Reglan 10 mg Tablet] 10 mg PO Q8H PRN #10 tablet PRN Reason: [facility]errals: [facility] [[facility]] - Follow up as needed
[2019-07-11] MEDS ORDERED: KETOROLAC TROMETHAMINE INJ/PF 30 MG/1 ML SDV IV ONE (00:37)
[2019-07-11 02:30] LABS: APPEARANCE,URINE CLEAR; BILIRUBIN,URINE NEGATIVE (NEGATIVE); COLOR,URINE YELLOW; GLUCOSE, URINE NEGATIVE (NEGATIVE); KETONES,URINE NEGATIVE (NEGATIVE); LEUKOCYTE ESTERASE,URINE NEGATIVE (NEGATIVE); NITRITE,URINE NEGATIVE (NEGATIVE); PROTEIN,URINE NEGATIVE (NEGATIVE); URINE SPECIFIC GRAVITY 1.031; UROBILINOGEN,URINE NEGATIVE mg/dL (<2.0)
[2019-07-11 02:32] VITALS: BP 119/72
== END 2019-07-11 02:31 | disposition home or self-care (01) ==
LOC: ER 20:55
DX: A05.9 Bacterial foodborne intoxication, unspecified (principal); R11.2 Nausea with vomiting, unspecified; R19.7 Diarrhea, unspecified; R10.10 Upper abdominal pain, unspecified; R10.819 Abdominal tenderness, unspecified site; R68.83 Chills (without fever); R61 Generalized hyperhidrosis; I10 Essential (primary) hypertension; J45.909 Unspecified asthma, uncomplicated
CPT/HCPCS: 99284; 96361; 96374; 96375; 36415; 83690; 85025; 80053; 81001; J1885; J2765; S0119; J7030

== ENCOUNTER 2019-08-26 08:25 | Emergency (ER) | payer OTHER ==
[2019-08-26] MEDS ORDERED: NORMAL SALINE 1000 ML 1,000 ML IV ONE (08:58)
[2019-08-26] MEDS ORDERED: DIPHENHYDRAMINE HCL 50 MG/ML VIAL IV ONE ×2 (08:59→09:00)
[2019-08-26] MEDS ORDERED: METOCLOPRAMIDE HCL ORAL SOLN 10 MG/10 ML UDCUP PO ONE (09:03)
[2019-08-26] MEDS ORDERED: MAG HYDROX/AL HYDROX/SIMETH SUSP 30 ML UDCUP PO ONE (09:03)
[2019-08-26] MEDS ORDERED: LIDOCAINE 2% VISCOUS SOLN 15 ML UDCUP PO ONE (09:03)
--- NOTE | 2019-08-26 09:27 | RADIOLOGY REPORT (SQ) ---
EXAM DESCRIPTION: CHEST SINGLE VIEW IMAGES COMPLETED DATE/TIME: 08/26/2019 9:18 am REASON FOR STUDY: caustic ingestion accidental COMPARISON: PA and lateral views of the chest from 06/24/2018. EXAM PARAMETERS: NUMBER OF VIEWS: One view. TECHNIQUE: An AP view of the chest was obtained. RADIATION DOSE: NA LIMITATIONS: None. FINDINGS: LUNGS AND PLEURA: No consolidation, pleural effusion or pneumothorax. MEDIASTINUM AND HILAR STRUCTURES: No mediastinal or hilar contour abnormality. HEART AND VASCULAR STRUCTURES: The cardiac silhouette and pulmonary vasculature are within normal howard its. BONES: No acute findings. HARDWARE: None in the chest. OTHER: No other finding. IMPRESSION: No acute cardiopulmonary process. TECHNICAL DOCUMENTATION: JOB ID: [id number] 2010 [email or web address]- All Rights Reserved Reading location - IP/workstation name: [email or web address]
--- NOTE | 2019-08-26 11:04 | ER Document Report ---
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 Patient states he could not sleep last night and accidentally drank what he thinks is bleach after he woke up. Patient states he woke up his cousin who told him to vomit, which he forced himself to do x6 times, and denies blood in his vomit. Patient states his cousin called poison control, who told him to come to the ED. Patient reports a stuffy nose, feeling itchy everywhere and denies nausea. TRAVEL OUTSIDE OF THE [place] IN LAST 30 DAYS: No - Related Data Allergies/Adverse Reactions: No Known Allergies Allergy (Verified 07/10/19 21:32) Past Medical History - General Information source: Patient - Social History Smoking Status: Unknown if Ever Smoked Lives with: Family Family History: Reviewed & Not Pertinent - Past Medical History Cardiac Medical History: Reports: Hx Hypercholesterolemia, Hx Hypertension Pulmonary Medical History: Reports: Hx Asthma Musculoskeletal Medical History: Reports Hx Arthritis Psychiatric Medical History: Reports: Hx Anxiety, Hx Depression Past Surgical History: Reports: Hx Nose Surgery - Deviated Septum, Hx Orthopedic Surgery - left wrist, Hx Vascular Surgery - PRK Bilateral eyes, 2 Gum Graphs - Immunizations Hx Diphtheria, Pertussis, Tetanus Vaccination: Yes Review of Systems - Review of Systems Constitutional: No symptoms reported EENT: See HPI, Nose congestion, Other - Tongue swelling Cardiovascular: No symptoms reported Respiratory: No symptoms reported Gastrointestinal: See HPI, Vomiting. denies: Nausea Genitourinary: No symptoms reported Male Genitourinary: No symptoms reported Musculoskeletal: No symptoms reported Skin: See HPI Hematologic/Lymphatic: No symptoms reported Neurological/Psychological: No symptoms reported -: Yes All other systems reviewed and negative Physical Exam - Vital signs Vitals: Temp Pulse Resp BP Pulse Ox 97.8 F 101 H 18 138/79 H 98 08/26/19 08:25 08/26/19 08:25 08/26/19 08:25 08/26/19 08:25 08/26/19 08:25 - General General appearance: Appears well, Alert - HEENT Head: Normocephalic, Atraumatic Eyes: Normal Pupils: PERRL Mouth/Lips: Other - Tongue is swollen with mild erythema. Pharynx: Other - Airway not compromised - Respiratory Respiratory status: No respiratory distress Chest status: Nontender Breath sounds: Normal. No: Stridor, Wheezing Chest palpation: Normal - Cardiovascular Rhythm: Regular Heart sounds: Normal auscultation Murmur: No - Abdominal Inspection: Normal Distension: No distension Bowel sounds: Normal Tenderness: Nontender - Extremities General upper extremity: Normal inspection. No: Edema General lower extremity: Normal inspection. No: Edema - Neurological Neuro grossly intact: Yes Cognition: Normal Orientation: AAOx4 - Psychological Associated symptoms: Normal affect, Normal mood - Skin Skin Temperature: Warm Skin Moisture: Dry Skin Color: Normal Course - Re-evaluation Re-evalutation: 08/26/19 10:54 Patient resting comfortably not showing any signs of distress. - Vital Signs Vital signs: Temp Pulse Resp BP Pulse Ox 97.5 F 101 H 18 111/65 96 08/26/19 08:25 08/26/19 08:25 08/26/19 08:25 08/26/19 10:01 08/26/19 10:01 Vital signs stable except for pulse of 101. Saturations 96%. - Diagnostic Test Radiology reviewed: Image reviewed, Reports reviewed Radiology results interpreted by me: 08/26/19 10:55 Chest x-ray 1 view no acute process no infiltrate Discharge - Discharge Clinical Impression: Accidental ingestion of caustic alkali Condition: Stable Disposition: HOME, SELF-CARE Additional Instructions: Today you had an accidental ingestion of a small amount of bleach that was in a cup as you mistakenly thought it was water. You gave history that you immediately vomited and induce vomiting to get the substance out of your stomach. Also you came to us for further evaluation after a phone call have been made to the [facility]. We appreciate her coming to the emergency department today and and you are being discharged home because at this point there is no evidence for any significant injury to your GI tract your mouth your throat or your esophagus. You able to swallow and drink water without any complications and your voice is clear and there is no evidence for any aspiration in your chest as you have a negative chest x-ray at this time. You immediately had some urticarial reaction of itching and hives on your arms and that has resolved as well. Certainly we can expect you to drink plenty of water and continue to be careful before you swallow. Recommend that you begin Gaviscon liquid 15 mL 3 times a day for the next 1 to 2 days. Referrals: [facility] [Primary [facility]] - Follow up as needed I personally performed the services described in the documentation, reviewed and edited the documentation which was dictated to the scribe in my presence, and it accurately records my words and actions.
[2019-08-26 11:16] VITALS: BP 124/88
== END 2019-08-26 11:16 | disposition home or self-care (01) ==
LOC: ER 08:25
DX: T54.3X1A Toxic effect of corrosive alkalis and alkali-like substances, accidental (unintentional), initial encounter (principal); X58.XXXA Exposure to other specified factors, initial encounter; Y92.009 Unspecified place in unspecified non-institutional (private) residence as the place of occurrence of the external cause; E78.00 Pure hypercholesterolemia, unspecified; I10 Essential (primary) hypertension
CPT/HCPCS: 99283; 96361; 96374; 71045; J1200; J3490; J7030